=== PATIENT | female | born 1950 | race Caucasian/White ===

== ENCOUNTER 2020-07-27 10:38 | Outpatient (CLI) | payer MEDICARE, SELFPAY ==
--- NOTE | 2020-07-27 10:59 | XRR_ITS ---
PROCEDURE INFORMATION: Exam: XR Lumbosacral Spine Exam date and time: 07/27/2020 11:05 AM Age: 69 years old Clinical indication: Low back pain; Additional info: Chronic back pain TECHNIQUE: Imaging protocol: XR of the lumbosacral spine. Views: 2 or 3 views. COMPARISON: CR Lumbar Spine 2-3 views* [id number] 02/17/2019 1:53 PM FINDINGS: Bones/joints: Moderate degenerative disc disease diffusely reflected as decrease in disc space height and anterior endplate osteophytosis. Severe disc space narrowing L4-L5 and L5-S1. Probable pars defect L4 with a 10 mm anterolisthesis. Possible mild compression fracture anterior column of L1 although poorly visualized on the submitted radiographs. Consider additional views. Soft tissues: Unremarkable. XR/XR lumbar spine 2-3V* [id number] IMPRESSION: 1. Moderate degenerative disc disease diffusely reflected as decrease in disc space height and anterior endplate osteophytosis. Severe disc space narrowing L4-L5 and L5-S1. Probable pars defect L4 with a 10 mm anterolisthesis. 2. Possible mild compression fracture anterior column of L1 although poorly visualized on the submitted radiographs. Consider additional views.
--- NOTE | 2020-07-27 10:59 | XRR_ITS ---
PROCEDURE INFORMATION: Exam: XR Left Knee Exam date and time: 07/27/2020 11:05 AM Age: 69 years old Clinical indication: Pain; Knee; Bilateral; Additional info: Left knee pain TECHNIQUE: Imaging protocol: XR Left knee. Views: 3 views. COMPARISON: CR Knee 3 views, LEFT* [id number] 10/29/2018 10:48 AM FINDINGS: Bones/joints: Severe degenerative changes within the medial compartment and to a lesser degree the lateral compartment.Near bone on bone appearance with osteophytosis medially. severe patellofemoral degenerative changes. Soft tissues: Normal. XR/XR knee LT 3V* [id number] IMPRESSION: 1. Severe degenerative changes within the medial compartment and to a lesser degree the lateral compartment.Near bone on bone appearance with osteophytosis medially. 2. Severe patellofemoral degenerative changes.
--- NOTE | 2020-07-27 10:59 | XRR_ITS ---
PROCEDURE INFORMATION: Exam: XR Right Knee Exam date and time: 07/27/2020 11:05 AM Age: 69 years old Clinical indication: Pain; Knee; Bilateral; Additional info: Right knee pain TECHNIQUE: Imaging protocol: XR Right knee. Views: 3 views. COMPARISON: CR Knee 3 views, RIGHT* [id number] 10/29/2018 10:56 AM FINDINGS: Bones/joints: Severe degenerative changes within the medial compartment and to a lesser degree the lateral compartment.Severe joint space narrowing with osteophytosis medially. severe patellofemoral degenerative changes. Small suprapatellar effusion. XR/XR knee RT 3V* [id number] IMPRESSION: 1. Severe degenerative changes within the medial compartment and to a lesser degree the lateral compartment.Severe joint space narrowing with osteophytosis medially. 2. Severe patellofemoral degenerative changes. 3. Small suprapatellar effusion.
== END 2020-07-27 10:39 | disposition home or self-care (01) ==
PROVIDERS: PCP Physician Assistant; Visit Provider Family Medicine
DX: M51.36 Other intervertebral disc degeneration, lumbar region; G89.29 Other chronic pain
CPT/HCPCS: 72100; 73562

== ENCOUNTER 2021-12-08 13:23 | Outpatient (CLI) | payer MEDICARE, SELFPAY ==
--- NOTE | 2021-12-08 13:45 | XR_ITS ---
WS: [email or web address] Right knee, 3 views, 12/08/2021 Clinical Data: CHRONIC BILATERAL KNEE PAIN Comparison: Right knee, 07/27/2020. Findings: No fractures or dislocations are seen. The medial joint compartment is narrow with spurring of the me dial femoral condyle medial tibial plateau. There is a spur of the lateral tibial plateau. The patell a shows severe osteoarthritic change and spurring. The soft tissues are normal. XR/XR knee RT 3V* [id number] Impression: Severe osteoarthritis of the right knee. Kellgren-Asa Classification: grade 4 (severe): large osteophytes, marked n arrowing of joint space, severe sclerosis and definite deformity of bone ends
--- NOTE | 2021-12-08 13:45 | XR_ITS ---
WS: [email or web address] Left knee, 3 views, 12/08/2021 Clinical Data: CHRONIC BILATERAL KNEE PAIN Comparison: Left knee, 07/27/2020. Findings: No fractures or dislocations are seen. There is severe narrowing of the medial joint compartment with sclerosis and medial osteophytes of the tibial plateau and femoral condyle. There is an osteophyte o f the lateral tibial plateau. The patella shows severe osteophyte formation. The soft tissues are unr emarkable. XR/XR knee LT 3V* [id number] Impression: Severe degenerative osteoarthritis of the left knee. Kellgren-Asa Classification: grade 4 (severe): large osteophytes, marked n arrowing of joint space, severe sclerosis and definite deformity of bone ends
== END 2021-12-08 13:24 | disposition home or self-care (01) ==
PROVIDERS: PCP Physician Assistant; Visit Provider Family Medicine
DX: M25.562 Pain in left knee (principal); M25.561 Pain in right knee; M17.0 Bilateral primary osteoarthritis of knee
CPT/HCPCS: 73562

== ENCOUNTER 2022-07-25 12:33 | Outpatient (CLI) | payer MEDICARE, SELFPAY ==
--- NOTE | 2022-07-25 12:52 | XR_ITS ---
WS: [email or web address] Right knee, 3 views, 07/25/2022 Clinical Data: R KNEE PAIN Comparison: Right knee, 12/08/2021 Findings: No fractures or dislocations are seen. There is medial joint compartment narrowing with sclerosis of the articular surface of the medial tibial plateau. There are spurs of the medial and lateral femoral condyles and medial and lateral tibial plateaus. The patella shows spurring. The soft tissues are n ormal. XR/XR knee RT 3V* [id number] Impression: Severe osteoarthritis of the right knee. Kellgren-Asa Classification: grade 4 (severe): large osteophytes, marked n arrowing of joint space, severe sclerosis and definite deformity of bone ends
== END 2022-07-25 12:34 | disposition home or self-care (01) ==
PROVIDERS: PCP Family Medicine; Visit Provider Family Medicine
DX: M17.11 Unilateral primary osteoarthritis, right knee (principal)
CPT/HCPCS: 73562

== ENCOUNTER 2022-10-19 06:53 | Outpatient (CLI) | payer MEDICARE, SELFPAY ==
--- NOTE | 2022-10-19 | US_ITS ---
WS: [email or web address] Ultrasound limited abdomen. HISTORY: HERNIA COMPARISON: None available. TECHNIQUE: 2-D and color Doppler imaging is submitted. Ultrasound is directed in the LEFT upper abdomen by the patient. The palpable area corresponds to a m ildly mixed echogenicity mass which is very similar to the adjacent soft tissues. This mass measures 4.1 x 2.7 x 3.7 cm No increased vascularity. No peristalsis. No change with Valsalva. US/US abdomen limited [id number] IMPRESSION: Palpable area in the LEFT upper abdomen is most consistent with an abdominal wa ll hernia containing omental fat. This can be confirmed with CT if clinically n ecessary.
== END 2022-10-19 06:54 | disposition home or self-care (01) ==
LOC: RAD 06:57
PROVIDERS: PCP Family Medicine; Visit Provider Family Medicine
DX: K46.9 Unspecified abdominal hernia without obstruction or gangrene (principal); R10.9 Unspecified abdominal pain
CPT/HCPCS: 76705

== ENCOUNTER 2023-04-09 13:29 | Outpatient (CLI) | payer MEDICARE, SELFPAY ==
--- NOTE | 2023-04-09 13:37 | MM_ITS ---
WS: [email or web address] BILATERAL 3D TOMOSYNTHESIS DIGITAL SCREENING MAMMOGRAPHY WITH CAD CLINICAL INFORMATION: SCREENING HISTORY: Screening mammogram breast pain. COMPARISON: 2019 TECHNIQUE: Bilateral CC and MLO views. FINDINGS: Scattered fibroglandular densities bilaterally. No suspicious focal mass, asymmetry, calcifications, or architectural distortion. No evidence of malignancy. Incidental punctate and lucent centered calci fications. IMPRESSION: MM/[place] [id number] BI-RADS: 2-Benign FOLLOW UP: 1 Year Follow-up Recommend return to annual screening mammography.
--- NOTE | 2023-04-09 13:41 | XR_ITS ---
WS: [email or web address] DEXA (DUAL ENERGY X-RAY ABSORPTIOMETRY) Bone mineral density was performed using a [employer]. machine. HISTORY: POST MENOPAUSAL COMPARISON: 02/17/2019 Lumbar spine BMD (L1-L4): 1.552 g/cm2 T score: 3.1 Z score: 3.6 Total hip BMD: Left: 0.940 g/cm2. T score: -0.5 Z score: 0.2 Right: 0.975 g/cm2. T score: -0.3 Z score: 0.5 10 year probability of a major osteoporotic fracture is 12.3%. Compared to the prior study from 02/17/2019. Lumbar spine bone mineral density has increased by 13.7%. Bilateral hips bone mineral density has decreased by 0.3%. IMPRESSION: NORMAL BONE MINERAL DENSITY based upon the WHO classification for females. Significant increase in bone mineral density within the lumbar spine since the prior study.
== END 2023-04-09 13:30 | disposition home or self-care (01) ==
LOC: RAD 13:30
PROVIDERS: PCP Nurse Practitioner; Visit Provider Nurse Practitioner
DX: Z12.31 Encounter for screening mammogram for malignant neoplasm of breast (principal); Z78.0 Asymptomatic menopausal state
CPT/HCPCS: 77063; 77067; 77080

== ENCOUNTER → 2023-07-23 09:46 | Outpatient (BNVA) | payer MEDICARE, SELFPAY | PROVIDERS: PCP Nurse Practitioner; Visit Provider Internal Medicine Rheumatology | DX: Z79.899 Other long term (current) drug therapy (principal); M19.90 Unspecified osteoarthritis, unspecified site; M67.919 Unspecified disorder of synovium and tendon, unspecified shoulder; M25.50 Pain in unspecified joint; Z71.85 Encounter for immunization safety counseling; M17.0 Bilateral primary osteoarthritis of knee; M47.816 Spondylosis without myelopathy or radiculopathy, lumbar region; M19.041 Primary osteoarthritis, right hand; M19.042 Primary osteoarthritis, left hand; M19.071 Primary osteoarthritis, right ankle and foot; M19.072 Primary osteoarthritis, left ankle and foot | CPT/HCPCS: 36415; 73130; 73630; 80076; 82085; 82550; 82565; 85025; 85651; 86140; 99204 ==

== ENCOUNTER 2024-02-06 14:56 | Outpatient (CLI) | payer MEDICARE, SELFPAY ==
--- NOTE | 2024-02-06 15:09 | XR_ITS ---
WS: [email or web address] XR hand RT min 3V* [id number] REASON FOR EXAM: JOINT PAIN FINDINGS: No fracture or focal bone lesion. No periostitis or periosteal reaction. Significant asymmetric narrowing of the joint space with significant subchondral sclerosis and margin al osteophytosis in the DIP and to a lesser extent the PIP joints of the fingers. Similar arthropathi c changes seen in the 3 joints of the thumb. There is mild narrowing of the joint space with mild subchondral sclerosis and mild subluxation in th e second and third MCP joints. XR/XR hand RT min 3V* [id number] IMPRESSION: Significant osteoarthritis of the right hand.
--- NOTE | 2024-02-06 15:09 | USCV_ITS ---
Ade Bailey Age: 73 Gender: F : 1950 Exam Date: 02/06/2024 15:26 Ordering Phys: Melvi Mujica Technologist: CT [place] [facility] [place] Indication: edema PROCEDURES: Venous duplex imaging was performed in only the right lower extremity. On the right side, the common femoral, superficial femoral, profunda femoral, popliteal, posterior tibial, greater saphenous veins and the peroneal trunk were identified and interrogated in the standard fashion. These veins were found to be easily compressible with spontaneous blood flow. No evidence of insufficiency or thrombus noted. FINDINGS: large pt, no dvt CONCLUSIONS No evidence of right lower extremity DVT. Kehinde Palacio MD (Electronically Signed) Final Date: 06 February 2024 17:03 S
--- NOTE | 2024-02-06 15:09 | XR_ITS ---
WS: [email or web address] XR hand LT min 3V* [id number] REASON FOR EXAM: JOINT PAIN FINDINGS: No fracture or focal bone lesion. No periostitis or periosteal reaction. Significant asymmetric narrowing of the joint space with significant subchondral sclerosis and osteop hytosis in the DIP joints of the fingers. Similar but milder arthropathic changes seen in the PIP eyad nts of the fingers. Similar arthropathic changes seen in the 3 joints of the thumb. There is moderate narrowing of the joint spaces of the third through the fifth MCP joints. XR/XR hand LT min 3V* [id number] IMPRESSION: Significant osteoarthritis of the left hand.
[2024-02-06 15:32] LABS: Erythrocyte Sedimentation Rate 10 mm/hr (0-15)
[2024-02-06 15:47] LABS: C Reactive Protein 3.8 mg/L (0.0-4.9)
[2024-02-07 15:01] LABS: Cyclic Citrullinated Peptide <16 UNITS
== END 2024-02-06 14:57 | disposition home or self-care (01) ==
PROVIDERS: PCP Nurse Practitioner; Visit Provider Nurse Practitioner
DX: M19.041 Primary osteoarthritis, right hand (principal); M19.042 Primary osteoarthritis, left hand; R60.0 Localized edema; M25.50 Pain in unspecified joint
CPT/HCPCS: 36415; 73130; 85651; 86038; 86140; 86200; 86431; 93971